=== PATIENT | female | born 1975 | race American Indian/Alaskan Native ===

== ENCOUNTER 2016-10-27 06:16 | Day surgery (SDC) | payer MEDICAID ==
--- NOTE | 2016-10-27 07:47 | Anesthesia Consultation ---
Anesthesia Consult and Med Hx Date of service: 10/27/16 - Airway Anesthetic Teeth Evaluation: Good ROM Head & Neck: Adequate Mental/Hyoid Distance: Adequate Mallampati Class: Class II Intubation Access Assessment: Probably Good - Pulmonary Exam CTA: Yes - Cardiac Exam Cardiac Exam: RRR - Pre-Operative Health Status ASA Pre-Surgery Classification: ASA2 Proposed Anesthetic Plan: MAC - Pulmonary Hx Smoking: No - Cardiovascular System Hx Hypertension: No - Gastrointestinal Hx Gastroesophageal Reflux Disease: Yes (med prn) - Endocrine Hx Renal Disease: No Hx Liver Disease: No (BS 275 this AM) Hx Insulin Dependent Diabetes: Yes - Other Systems Hx Obesity: Yes (sp gastric sleeve) - Additional Comments Anesthesia Medical History Comments: NAC
--- NOTE | 2016-10-27 07:48 | Anesthesia Day of Surgery ---
Anesthesia Day of Surgery - Day of Surgery Patient Examined: Yes Patient H&P Reviewed: Yes Patient is NPO: Yes
[2016-10-27] MEDS ORDERED: NACL 0.9% 1000 ML 1,000 ML IV SCH (08:00)
--- NOTE | 2016-10-27 09:35 | Post Anesthesia Evaluation ---
- Post Anesthesia Evaluation Patient Participated: Yes Airway Patent: Yes Stable Respiratory Function: Yes Nausea/Vomiting: No Temp > 96.8F: Yes Pain Manageable: Yes Adequeate Hydration: Yes Anesthesia Complications: No Block Receding Appropriately: Not Applicable Patient on Ventilator: No
[2016-10-27 09:42] VITALS: BP 135/76
--- NOTE | 2016-10-29 06:50 | Operative Report ---
ENDOSCOPY REPORT TIME: 8:55 a.m. PROCEDURE: Upper endoscopy. PREOPERATIVE DIAGNOSIS: This patient is status post sleeve gastrectomy with epigastric pain and gastroesophageal reflux disease. POSTOPERATIVE DIAGNOSIS: This patient's GE junction is at 35 cm. She has a hiatal hernia, type 1, sliding hiatal hernia 3 cm in size and a small ulcer at the cardia. DESCRIPTION OF PROCEDURE: The patient was placed on the operative gurney in the dorsal supine position and following satisfactory induction of MAC anesthesia, she was then placed in the left lateral decubitus position and then under MAC anesthesia using propofol solution, she was placed under sedation. Then, using the upper endoscopy, esophagoscope, the esophagoscope was then placed into the patient's posterior oropharynx and passed down into the upper esophagus and mid esophagus and then into the lower esophageal area. Entry into the patient's esophageal area and into her pouch revealed an area of small ulceration in her cardia with the GE junction at 35 cm. She has a small ulcer in the upper area of the cardia and hiatal hernia, there was a type 1 sliding hiatal hernia that was approximately 3 cm in size. The remaining portion of the post-sleeve gastrectomy was unremarkable; however, the findings of the hiatal hernia along with the small ulcer at the cardia, could possibly explain this patient's epigastric abdominal pain as a result of her reflux disease. Following completion of the endoscopy that the patient tolerated the procedure well. The stomach was desufflated and the examination was then terminated. The patient tolerated the procedure well and was subsequently sent to recovery room in satisfactory condition. [facility]# [id number] KADIE/ZOFIA
== END 2016-10-27 06:17 | disposition home or self-care (01) ==
LOC: GIO 06:16
PROVIDERS: ATTEND Specialist
DX: K25.9 Gastric ulcer, unspecified as acute or chronic, without hemorrhage or perforation (principal); K44.9 Diaphragmatic hernia without obstruction or gangrene; E10.9 Type 1 diabetes mellitus without complications; K21.9 Gastro-esophageal reflux disease without esophagitis; E66.9 Obesity, unspecified; Z68.33 Body mass index [BMI] 33.0-33.9, adult; Z90.3 Acquired absence of stomach [part of]; Z90.49 Acquired absence of other specified parts of digestive tract; Z98.890 Other specified postprocedural states; Z79.4 Long term (current) use of insulin; Z79.899 Other long term (current) drug therapy
CPT/HCPCS: 43235; 81025; 82962; 96374; J7030; J1815